=== PATIENT | female | born 1955 | race Caucasian/White ===

== ENCOUNTER 2017-09-11 01:29 | Emergency (ER) | payer OTHER ==
[2017-09-11] MEDS: CEFTRIAXONE 1 GM/50 ML (PMX) 50 ML IVPB (03:15)
[2017-09-11] MEDS: METHYLPREDNISOLONE 125 MG INJ IV (03:15)
== END 2017-09-11 03:56 | disposition home or self-care (01) ==
LOC: FTE 01:29
DX: L03.116 Cellulitis of left lower limb (principal)
CPT/HCPCS: 96374; 96375; 99284-25; J0696